=== PATIENT | male | born 1980 | race Caucasian/White ===

== ENCOUNTER 2022-03-23 07:40 | Day surgery (SDC) | payer OTHER ==
[~2022-03-23] VITALS: Ht 182.9 cm; Wt 130.2 kg
[2022-03-23 08:44] LABS: BASOPHILS # (AUTO) 0.1 K/uL (0.00-0.22); BASOPHILS % (AUTO) 0.9 % (0.0-2.0); EOSINOPHILS # (AUTO) 0.4 K/uL (0-0.4); EOSINOPHILS % (AUTO) 5.5 % (0.0-4.0); HEMATOCRIT 41.8 % (36-52); HEMOGLOBIN 13.8 g/dL (12.0-18.0); LYMPHOCYTES # (AUTO) 2.1 K/uL (2.0-11.5); LYMPHOCYTES % (AUTO) 28.6 % (20.5-51.1); MEAN CORPUSCULAR HEMOGLOBIN 26 pg (27-31); MEAN CORPUSCULAR HGB CONC 33 g/dL (33-37); MEAN CORPUSCULAR VOLUME 77.5 fL (80-94); MONOCYTES # (AUTO) 0.5 K/uL (0.8-1.0); MONOCYTES % (AUTO) 6.4 % (1.7-9.3); NEUTROPHILS # (AUTO) 4.3 K/uL (1.8-7.7); NEUTROPHILS % (AUTO) 58.6 % (42.2-75.2); PLATELET COUNT (AUTO) 198 K/uL (140-450); RED BLOOD CELL COUNT(AUTO) 5.39 MIL/uL (4.20-6.10); RED CELL DISTRIBUTION WIDTH 14.7 % (11.6-13.7); WHITE BLOOD COUNT (AUTO) 7.3 K/uL (4.8-10.8)
[2022-03-23 09:08] LABS: ALBUMIN 3.9 g/dL (3.4-5.0); CARBON DIOXIDE 28.3 mmol/L (21-32); POTASSIUM 3.3 mmol/L (3.5-5.1); TOTAL BILIRUBIN 0.3 mg/dL (0.0-1.0)
[2022-03-23] MEDS ORDERED: ceFAZolin 1,000 MG in DEXTROSE 5% 100 ML IV ONE (09:30)
[2022-03-23] MEDS ORDERED: KCL 20 MEQ IN 100 mL PREMIX 100 ML IV SCH (09:48)
[2022-03-23] MEDS ORDERED: LABETALOL 20 MG/4 ML VIAL IVP PRN ×2 (10:43→12:01)
[2022-03-23] MEDS ORDERED: hydrALAZINE 20 MG/ML VIAL IVP PRN ×2 (10:43→12:01)
[2022-03-23] MEDS ORDERED: LACTATED RINGERS 1,000 ML IV SCH ×2 (10:45→12:00)
[2022-03-23] MEDS ORDERED: HYDROmorphone 1 MG/ML AMP IVP PRN ×2 (10:45→12:00)
[2022-03-23] MEDS ORDERED: KETOROLAC 30 MG/ML VIAL ONE ×2 (11:00→13:39)
[2022-03-23] MEDS ORDERED: ONDANSETRON 4 MG/2 ML VIAL ONE ×2 (11:00→13:39)
[2022-03-23] MEDS ORDERED: PROPOFOL 200 MG/20 ML VIAL IV ONE ×2 (11:00→13:39)
[2022-03-23] MEDS ORDERED: ceFAZolin 1,000 MG VIAL ONE (11:00)
[2022-03-23] MEDS ORDERED: LIDOCAINE 2% 1000 MG/50 ML VIAL INJ ONE (11:15)
[2022-03-23] MEDS ORDERED: BUPIVACAINE-MPF/EPI 0.5% 30 ML VIAL INJ ONE (11:15)
[2022-03-23] MEDS ORDERED: BUPIVACAINE-MPF 0.5% 10 ML VIAL INJ ONE (11:21)
[2022-03-23] MEDS ORDERED: METOCLOPRAMIDE 10 MG/2 ML INJ VIAL IVP PRN (12:01)
== END 2022-03-23 13:05 | disposition home or self-care (01) ==
LOC: MOR 07:40 → MMU 07:49 → MOR 13:05
PROVIDERS: ATTEND Podiatrist Foot & Ankle Surgery
DX: M20.5X1 Other deformities of toe(s) (acquired), right foot (principal); E03.9 Hypothyroidism, unspecified; I10 Essential (primary) hypertension; E78.5 Hyperlipidemia, unspecified; E11.9 Type 2 diabetes mellitus without complications; E66.9 Obesity, unspecified; Z68.42 Body mass index [BMI] 45.0-49.9, adult; Z20.822 Contact with and (suspected) exposure to COVID-19; Z79.899 Other long term (current) drug therapy
CPT/HCPCS: 28292; 36415; 80053; 85025; 87426; 88305; 88313; 88342; J0690; J1885; J2001; J2405; J2704; J3480; J3490; J7060